=== PATIENT | female | born 1970 | race Caucasian/White ===

== ENCOUNTER → 2022-10-12 | Outpatient (CLI) | payer OTHER ==
[2022-10-13 15:09] LABS: HPV 16 Negative (Negative); HPV 18 Negative (Negative); HPV OTHER HR TYPES Negative (Negative)
== END ==
LOC: LAB 17:42 → LAB SHORT 17:42
PROVIDERS: Registered Nurse Community Health
DX: Z12.4 Encounter for screening for malignant neoplasm of cervix (principal)
CPT/HCPCS: 87624; G0145